=== PATIENT | male | born 1935 | race Caucasian/White ===

== ENCOUNTER 2020-03-26 10:32 | Outpatient (CLI) | payer MEDICARE, SELFPAY ==
--- NOTE | 2020-03-26 10:35 | USCV_ITS ---
Burgos Cl Age: 84 Gender: M : 1935 Exam Date: 03/26/2020 10:55 Ordering Phys: Fco Hendricks MD (Andy) ([email or web address] [place]) Technologist: Yary Coronado [place] [facility] [place]ication: STENOSIS Risk Factors: Previous Vascular Surgery: Right Brachial BP: / Left Brachial BP: / Right Left Velocity (cm/s) Spectral Plaque Velocity (cm/s) Spectral Plaque Syst/Diast Broadening Syst/Diast Broadening 90.60/ 14.90 Prox CCA 77.40 / 15.30 90.60/ 17.60 Mid CCA 71.90 / 14.60 79.90/ 11.80 Distal CCA 44.50 / 11.30 80.00/ 17.50 Prox ICA 59.80 / 9.60 83.80/ 17.50 Mid ICA 64.20 / 15.40 95.00/ 20.00 Distal ICA 52.00 / 13.00 197.80 ECA 113.40 1.05 ICA/CCA 0.89 Antegrade Vertebral Antegrade 37.30/ 8.60 cm/s 35.80/ 9.60 cm/s Tri Subclavian Tri 89.70 115.8 0 FINDINGS Comparison:. 08/30/19. No significant elevation of systolic or diastolic velocities. Diffuse bilateral scattered calcified plaque and intimal thickening throughout the common carotid arteries and extending through the bifurcation. Most significant soft plaque in the proximal right ICA. Mild progression of plaque but not stenosis. Bilateral antegrade vertebral arteries. CONCLUSIONS Bilateral ICA stenosis less than 50%. Bilateral plaque with mild progression since the prior study. Dr. Cheyenne Lea DO (Electronically Signed) Final Date: 27 Mar 2020 07:57 S
== END 2020-03-26 10:33 | disposition home or self-care (01) ==
LOC: RAD 10:34
PROVIDERS: PCP Family Medicine; Visit Provider Thoracic Surgery (Cardiothoracic Vascular Surgery)
DX: I65.23 Occlusion and stenosis of bilateral carotid arteries (principal)
CPT/HCPCS: 93880

== ENCOUNTER → 2020-05-15 10:53 | Outpatient (BNVA) | payer MEDICARE, SELFPAY | PROVIDERS: PCP Family Medicine; Visit Provider Urology | DX: R97.20 Elevated prostate specific antigen [PSA] (principal); N40.1 Benign prostatic hyperplasia with lower urinary tract symptoms; N39.0 Urinary tract infection, site not specified; N13.8 Other obstructive and reflux uropathy | CPT/HCPCS: 81001; 84153 ==

== ENCOUNTER 2021-05-02 05:22 | Emergency (ER) | payer MEDICARE, SELFPAY ==
[2021-05-02 05:29] VITALS: BP 226/98; PULSE 71; RESP 16; TEMP 36.7; O2SAT 98; BMI 26.6
--- NOTE | 2021-05-02 05:55 | ED_ITS ---
HPI - Male Genitourinary General: Chief complaint: Abdominal Pain Stated complaint: Can not urinate Time Seen by Provider: 05/02/21 05:38 History of Present Illness: HPI Narrative: 85-year-old male who try to urinate at 2 AM this morning and could not. He has had some hesitancy in the past, but never not been able to urinate Complaint: other Associated symptoms: Deny dysuria, hematuria, nausea or vomiting Review of Systems Const: Denies: fever(s) Eyes: Denies: change in vision ENMT: Denies: odynophagia, swelling of lips/tongue or sinus pain Card: Denies: chest pain or palpitations Resp: Denies: dyspnea, productive cough, non-productive cough or wheezing GI: Reports: abdominal pain; Denies: nausea or vomiting : Reports: difficulty urinating and urinary urgency; Denies: dysuria, urinary frequency or hematuria Skin/Breast: Denies: rash or erythema Neuro: Denies: confusion Psych: Denies: anxiety PFSH ED PFSH: Medical History BPH NOS w ur obs/LUTS Carotid stenosis Elevated PSA HTN (hypertension) Hyperlipemia Surgical History Hx of appendectomy Hx of bilateral cataract extraction Hx of cholecystectomy Family History Family/Other , Father liver cancer Cancer Mother , at age 88 Dementia Father , at age 78 Cancer liver Social History Smoking and tobacco status: former smoker Alcohol intake: unknown Adopted: No Caregiver/support person: No Lives independently: No Household members: spouse Marital status: Current occupational status: retired History of recent travel: No Physical Exam Const: COMMON NORMALS: no acute distress, patient oriented x3 and alert Chest: COMMONS NORMALS: normal inspection of the chest Resp: COMMON NORMALS: normal respiratory effort, No use of accessory muscles and clear to auscultation bilaterally AUSCULTATION: clear to auscultation bilaterally Cardio: COMMON NORMALS: regular rate and regular rhythm RATE: regular rate RHYTHM: regular rhythm GI: COMMON NORMALS: Normal to inspection, nondistended, normoactive bowel sounds present PALPATION: Yes Tenderness to palpation present (GI) (suprapubic) Neuro: COMMON NORMALS: patient oriented x3 SENSORIUM/ORIENTATION: Yes alert Course Vital Signs: Vital signs: Vital Signs Temperature 98.1 F 05/02/21 07:07 Pulse Rate 62 05/02/21 07:07 Respiratory Rate 18 05/02/21 07:07 Blood Pressure 184/76 05/02/21 07:07 Pulse Oximetry 96 05/02/21 07:07 MDM - Male MDM Narrative: Medical decision making narrative: Bedside ultrasound reveals a large urine filled bladder. Chowdhury will be placed. urinalysis is pending. Urology follow-up. He will be sent home with the Chowdhury. Lab Data: Labs: Lab Results 05/02/21 Range/Units 06:27 Urine Color Straw (Yellow) Urine Appearance Clear (CLEAR) Urine pH 6.5 (5-7) Ur Specific Gravit y 1.010 (1.005-1.030) Urine Protein Neg (Negative) Urine Glucose (UA) Norm (Normal) Urine Ketones Negative (Negative) Urine Blood Trace H (Negative) Urine Nitrate Negative (Negative) Urine Bilirubin Neg (Negative) Urine Urobilinogen Norm (Negative) mg/dL Ur Leukocyte Estefany ase Negative (Negative) Urine RBC 5-10 H (0-2) /hpf Urine WBC None (0-5) /hpf Ur Squamous Epith Cells None (0-5) /hpf Amorphous Sediment Not Reportable Urine Bacteria Trace (NONE) /hpf Discharge Plan Discharge Patient Disposition: Home Condition: Stable Prescriptions: No Action tamsulosin 0.4 mg capsule 0.4 mg PO DAILY RF: 0 atorvastatin 10 mg tablet 10 mg PO DAILY RF: 0 losartan 100 mg tablet 100 mg PO DAILY RF: 0 aspirin [Adult Low Dose Aspirin] 81 mg tablet,delayed release (DR/EC) 81 mg PO DAILY RF: 0 multivitamin Tablet 1 tab PO DAILY RF: 0 Discharge Orders: Discharge ED (Routine); Ordered 05/02/21 Ordered By: Maximo Levine Referrals: Marck Thomas MD [Physician] - 1-3 days Dharmesh Damon MD [Primary Care Provider] - Discharge Diet: Usual diet Patient Instructions: Urinary Retention in Men (ED), Chowdhury Catheter Placement and Care (ED) Activity Restrictions/Additional Instructions: Return for increasing pain, decreased urine output into the bag, fever, mental status changes, any other concerning symptoms. Call urology Tuesday morning for an appointment so that your catheter can be removed. Coding Level of Care Code ED Transmission Maintenance Supervisor for Antonia Fwd Exam Detailed
[2021-05-02 06:42] VITALS: BP 182/76; PULSE 60; RESP 16; TEMP 36.7; O2SAT 97
[2021-05-02 06:51] VITALS: BP 184/93; PULSE 63; RESP 18; O2SAT 96
[2021-05-02 06:57] LABS: Blood Urine Trace (Negative); Glucose Urine UA Norm (Normal); Ketones Urine Negative (Negative); Nitrate Urine Negative (Negative); Protein Urine Neg (Negative); Urine Appearance Clear (CLEAR); Urine Color Straw (Yellow); pH Urine 6.5 (5-7)
[2021-05-02 06:58] LABS: Add Urine Culture? No; Add Urine Microscopic? YES; Bacteria Urine TRACE /hpf; Bilirubin Urine Neg (Negative); Leukocyte Esterase Urine Negative (Negative); Urobilinogen Urine Norm (Negative)
--- NOTE | 2021-05-02 06:59 | PC.NURSE ---
Received report assumed care. No acute distress. Sitting in chair, waiting for UA results.
[2021-05-02 07:07] VITALS: BP 184/76; PULSE 62; RESP 18; TEMP 36.7; O2SAT 96
== END 2021-05-02 07:19 | disposition home or self-care (01) ==
PROVIDERS: Emergency Provider Emergency Medicine; PCP Family Medicine
DX: R10.9 Unspecified abdominal pain (principal); Z79.82 Long term (current) use of aspirin; I10 Essential (primary) hypertension; E78.5 Hyperlipidemia, unspecified; Z87.891 Personal history of nicotine dependence
CPT/HCPCS: 51702; 81001; 99283

== ENCOUNTER 2021-05-22 10:58 | Emergency (ER) | payer MEDICARE, SELFPAY ==
[2021-05-22 11:39] VITALS: BP 211/81; PULSE 60; RESP 16; TEMP 36.5; O2SAT 97; BMI 25.8
--- NOTE | 2021-05-22 12:47 | W.ED.MALEGU ---
HPI - Male Genitourinary General: Chief complaint: Urogenital-Male Stated complaint: blood in urine Time Seen by Provider: 05/22/21 12:29 Source: patient Mode of arrival: ambulatory Limitations: no limitations History of Present Illness: HPI Narrative: This 85-year-old male presents to the emergency department with complaint of hematuria. He states that for about a week he has been self catheterizing to empty his bladder of his residual urine after he urinates and instructions of his urologist. This morning he noticed that after he catheterized himself he saw some blood he says he thinks the blood was significant in quantity although it only lasted for a short time. Bleeding was painless. He is concerned about the bleeding and wants to be evaluated for this. Relieving factors: none Exacerbating factors: none Associated symptoms: Reports hematuria; Deny discharge, dysuria, fevers/chills, nausea, rash, swelling, urinary incontinence, urinary retention, mass or vomiting Review of Systems General: Reports: 10 or more systems reviewed and unremarkable except in HPI and below GI: Denies: nausea or vomiting : Reports: hematuria; Denies: dysuria or urinary incontinence [facility] ED PFSH: Medical History (Updated 05/22/21 @ 17:47 by Teresa Paredes [place], [facility] [place] BPH NOS w ur obs/LUTS Carotid stenosis Elevated PSA HTN (hypertension) Hyperlipemia Surgical History (Reviewed 05/22/21 @ 12:49 by Teresa Paredes MD, [facility] [place] Hx of appendectomy Hx of bilateral cataract extraction Hx of cholecystectomy Family History (Reviewed 05/22/21 @ 12:49 by Teresa Paredes MD, [facility] [place] Family/Other , Father liver cancer Cancer Mother , at age 88 Dementia Father , at age 78 Cancer liver Social History (Reviewed 05/22/21 @ 12:49 by Teresa Paredes MD, [facility] [place] Smoking and tobacco status: former smoker Alcohol intake: never Marital status: / Current occupational status: retired History of recent travel: No Physical Exam Const: COMMON NORMALS: no acute distress, average body habitus, patient oriented x3, no limitations, healthy appearing, alert and well nourished HENMT: COMMON NORMALS: normocephalic, atraumatic and moist oral mucous membranes HEAD & SCALP: normocephalic and atraumatic Neck/C-Spine: COMMON NORMALS: no meningeal signs and no JVD Resp: COMMON NORMALS: normal respiratory effort, No retractions, No use of accessory muscles, clear to auscultation bilaterally and percussion normal AUSCULTATION: clear to auscultation bilaterally PERCUSSION: percussion normal Cardio: COMMON NORMALS: no JVD, regular rate, regular rhythm, S1 normal heart sound present, S2 normal heart sound present, No gallops present (Cardio), No clicks present (Cardio), No murmurs present (Cardio), No rub (Cardio) and Peripheral pulses 2+ throughout RATE: regular rate RHYTHM: regular rhythm HEART SOUNDS: S1 normal heart sound present and S2 normal heart sound present PERIPHERAL PULSES: Peripheral pulses 2+ throughout GI: COMMON NORMALS: Normal to inspection, nondistended, normoactive bowel sounds present, Soft to palpation, non-tender, No hepatosplenomegaly present, no masses and no bruits PALPATION: Yes Soft to palpation and Yes No hepatosplenomegaly present Extremity: COMMON NORMALS: normal to inspection, full ROM, capillary refill normal, no calf tenderness and no pedal edema Neuro: COMMON NORMALS: patient oriented x3 SENSORIUM/ORIENTATION: Yes alert MENINGEAL SIGNS: Yes no meningeal signs Skin: COMMON NORMALS: no rashes or lesions noted, no wounds, turgor normal, no jaundice, no petechiae and no mottling GENERAL SKIN EXAM: no rashes or lesions noted and turgor normal Course Consultations: Consultation #1: Discussed the patient with Dr. Thomas, patient urologist. He advised that we irrigate the Chowdhury catheter that we inserted as he believes this will clear out the old blood that appears to be draining from his bladder. If the urine does not clear up then we should call him back. Time: 17:16 Vital Signs: Vital signs: Vital Signs Temperature 97.7 F 05/22/21 11:39 Pulse Rate 65 05/22/21 18:02 Respiratory Rate 15 05/22/21 18:02 Blood Pressure 193/76 05/22/21 18:02 Pulse Oximetry 97 05/22/21 18:02 MDM - Male MDM Narrative: Medical decision making narrative: 85-year-old male who only recently started self catheterizing for about 1 week and today he noticed hematuria after he attempted to catheterize himself at home. He was worried about the amount of bleeding and so came to the emergency department to be evaluated. In the emergency department patient was unable to void and a bladder scan done showed he had almost 500 mils of urine in his bladder. A Chowdhury catheter was then inserted and bloody urine was drained. It did not look like fresh blood but old blood was draining into the catheter. I manually irrigated the patient's bladder with 1 L of sterile water after which the urine cleared. He was discharged home with a Chowdhury catheter in situ and a leg bag and he will follow up with the urologist. Medical Records: Attestation: I reviewed the patient's medical records. Lab Data: Attestation: I reviewed the patient's lab results. Labs: Lab Results 05/22/21 05/22/21 05/22/21 Range/Units 13:32 16:18 16:18 WBC 6.9 (4.0-10.0) 10^3/ uL RBC 4.83 (4.1-5.3) 10^6/u L Hgb 14.5 (11.7-16.6) g/dL Hct 43.9 (42.0-52.0) % MCV 90.9 (80-94) fL MCH 30.0 (28.0-34.0) pg MCHC 33.0 (30.0-36.0) g/dL RDW 12.0 L (12.1-15.1) % Plt Count 204 (130-400) 10^3/c mm MPV 9.5 (7.4-10.4) fL Neut % (Auto) 59.1 % Lymph % (Auto) 26.2 % Quay % (Auto) 5.5 % Eos % (Auto) 9.0 % Baso % (Auto) 0.1 % Neut # (Auto) 4.04 (1.8-7.7) 10^3/u L Lymph # (Auto) 1.8 (0.8-4.8) 10^3/u L Quay # (Auto) 0.4 (0.2-0.9) 10^3/u L Eos # (Auto) 0.6 (0.0-0.8) 10^3/u L Baso # (Auto) 0.0 (0.0-0.1) 10^3/u L Nucleated RBC % (a uto) 0 % Nucleated RBCs # 0.0 /100WBC Sodium 143 (136-145) mmol/L Potassium 3.8 (3.5-5.1) mmol/L Chloride 105 (98-107) mmol/L Carbon Dioxide 28 (22-29) mmol/L Anion Gap 13.8 (5-19) BUN 13 (8-23) mg/dL Creatinine 0.6 L (0.7-1.2) mg/dL GFR Calculation Not Reportable Glucose 82 (65-115) mg/dL Calculated Osmolal ity 295 (285-295) mOsm/k g Calcium 8.8 (8.5-10.5) mg/dL Total Bilirubin 1.9 H (0.15-1.2) mg/dL AST 17 (0-40) U/L ALT 12 (0-41) U/L Alkaline Phosphata se 85 (40-130) IU/L Total Protein 7.2 (6.6-8.7) g/dL Albumin 3.9 (3.5-5.2) g/dL Globulin 3.3 (1.3-4.6) g/dL Urine Color Red (Yellow) Urine Appearance Bloody A (CLEAR) Urine pH Not Reportable Ur Specific Gravit y Not Reportable Urine Protein Not Reportable Urine Glucose (UA) Not Reportable Urine Ketones Not Reportable Urine Blood Not Reportable Urine Nitrate Not Reportable Urine Bilirubin Not Reportable Urine Urobilinogen Not Reportable Ur Leukocyte Estefany ase Not Reportable Urine RBC Too numerous to c nt H (0-2) /hpf Urine WBC None (0-5) /hpf Ur Squamous Epith Cells None (0-5) /hpf Amorphous Sediment Not Reportable Urine Bacteria 1+ H (NONE) /hpf Discharge Plan Discharge Patient Disposition: Home Clinical Impression: Acute urinary retention, BPH NOS w ur obs/LUTS Hematuria Qualifiers: Hematuria type: gross Qualified Code(s): R31.0 - Gross hematuria Condition: Stable Prescriptions: Continued atorvastatin 10 mg tablet 10 mg PO DAILY RF: 0 losartan 100 mg tablet 100 mg PO DAILY RF: 0 aspirin [Adult Low Dose Aspirin] 81 mg tablet,delayed release (DR/EC) 81 mg PO DAILY RF: 0 multivitamin Tablet 1 tab PO DAILY RF: 0 tamsulosin 0.4 mg capsule 0.4 mg PO BID Qty: 180 RF: 3 finasteride 5 mg tablet 5 mg PO DAILY RF: 0 Discharge Orders: Discharge ED (Routine); Ordered 05/22/21 Ordered By: Teresa Paredes Referrals: Marck Thomas MD [Physician] - 4-7 days Dharmesh Damon MD [Primary Care Provider] - Discharge Diet: Usual diet Discharge Activity: Increase activity as tolerated Patient Instructions: Urinary Retention in Men (ED), Acute Hematuria (ED) Activity Restrictions/Additional Instructions: Return for any new or worsening symptoms. Follow-up with Dr. Thomas within 1 week. Call his office to schedule an appointment. Keep the urinary catheter in until you are evaluated by Dr. Thomas. Coding Level of Care Code ED [employer] Systems Superintendent for Crowg Fwd Exam Comprehensive
[2021-05-22 13:51] LABS: Urine Color Red (Yellow)
[2021-05-22 13:52] LABS: Add Urine Microscopic? YES; Urine Appearance Bloody (CLEAR)
[2021-05-22 13:54] LABS: Bacteria Urine 1+ /hpf; RBC Urine TOO NUMEROUS TO CNT /hpf (0-2)
[2021-05-22 13:55] LABS: Add Urine Culture? Yes
[2021-05-22 16:48] LABS: Basophils % 0.1 %; Eosinophils # 0.6 10^3/uL (0.0-0.8); Hematocrit 43.9 % (42.0-52.0); Hemoglobin 14.5 g/dL (11.7-16.6); Lymphocytes # 1.8 10^3/uL (0.8-4.8); Lymphocytes % 26.2 %; Mean Corpuscular Volume 90.9 fL (80-94); Mean Platelet Volume 9.5 fL (7.4-10.4); Monocytes # 0.4 10^3/uL (0.2-0.9); Monocytes % 5.5 %; Neutrophils # 4.04 10^3/uL (1.8-7.7); Neutrophils % 59.1 %; Nucleated Red Blood Cells % 0 %; Platelet Count 204 10^3/cmm (130-400); Red Blood Count 4.83 10^6/uL (4.1-5.3); White Blood Count 6.9 10^3/uL (4.0-10.0)
[2021-05-22 16:54] LABS: Alanine Aminotransferase 12 U/L (0-41); Albumin Level 3.9 g/dL (3.5-5.2); Alkaline Phosphatase 85 IU/L (40-130); Anion Gap 13.8 (5-19); Aspartate Amino Transferase 17 U/L (0-40); Blood Urea Nitrogen 13 mg/dL (8-23); Calcium 8.8 mg/dL (8.5-10.5); Carbon Dioxide 28 mmol/L (22-29); Chloride 105 mmol/L (98-107); Globulin 3.3 g/dL (1.3-4.6); Glucose 82 mg/dL (65-115); Osmolality Calculated 295 mOsm/kg (285-295); Potassium 3.8 mmol/L (3.5-5.1); Sodium 143 mmol/L (136-145); Total Bilirubin 1.9 mg/dL (0.15-1.2); Total Protein 7.2 g/dL (6.6-8.7)
[2021-05-22 18:02] VITALS: BP 193/76; PULSE 65; RESP 15; O2SAT 97
== END 2021-05-22 18:04 | disposition home or self-care (01) ==
PROVIDERS: Nurse Practitioner Family; Emergency Provider Family Medicine; PCP Family Medicine
DX: N40.1 Benign prostatic hyperplasia with lower urinary tract symptoms (principal); N13.8 Other obstructive and reflux uropathy; R33.8 Other retention of urine; R31.0 Gross hematuria; I10 Essential (primary) hypertension; E78.5 Hyperlipidemia, unspecified; Z87.891 Personal history of nicotine dependence
CPT/HCPCS: 51702; 51798; 80053; 81001; 85025; 87086; 99283

== ENCOUNTER → 2022-03-02 15:21 | Outpatient (BNVA) | payer MEDICARE, SELFPAY | PROVIDERS: PCP Family Medicine; Visit Provider Urology | DX: R33.9 Retention of urine, unspecified (principal) | CPT/HCPCS: 99213 ==

== ENCOUNTER → 2023-01-03 14:41 | Outpatient (BNVA) | payer MEDICARE, SELFPAY | PROVIDERS: PCP Family Medicine; Visit Provider Urology | DX: R33.9 Retention of urine, unspecified (principal); N40.1 Benign prostatic hyperplasia with lower urinary tract symptoms | CPT/HCPCS: 81003; 99213 ==